=== PATIENT | female | born 1985 | race Caucasian/White ===

== ENCOUNTER → 2016-09-08 | Outpatient (CLI) | payer BC | LOC: MW.CHOBGYN 11:30 | PROVIDERS: ATTEND Nurse Practitioner Women's Health | DX: N92.0 Excessive and frequent menstruation with regular cycle (principal) | CPT/HCPCS: 36415; 81025; 83002; 84439; 84443; 85025; 85610; 87491; 87591; 88305 ==

== ENCOUNTER → 2016-11-14 | Outpatient (CLI) | payer BC ==
--- NOTE | 2016-11-14 14:27 | CR ---
EXAMINATION: Abdomen HISTORY: Pain COMPARISON: CT dated 06/07/2016 TECHNIQUE: AP and upright views FINDINGS: There is no free air under the diaphragm. There is a small amount of stool and gas through out the colon without evidence of a bowel obstruction. Cholecystectomy clips are noted. No organomeg maria r. No abnormal calcifications. Bone mineralization appears normal. IMPRESSION: Unremarkable abdominal films.
== END ==
LOC: MW.CHOBGYN 11:02
PROVIDERS: ATTEND Nurse Practitioner Women's Health
DX: R10.9 Unspecified abdominal pain (principal)
CPT/HCPCS: 36415; 74020; 74020-26; 81001; 85025; 87086

== ENCOUNTER → 2016-11-17 | Outpatient (CLI) | payer BC ==
--- NOTE | 2016-11-17 20:20 | CT ---
EXAM DATE: 11/17/16 PATIENT'S AGE: 31 Patient: TAMRA WILLIS AAGERALDINEND Facility: [place], [place] : 1985 Study: CT Abdomen/Pelvis [id number]/12/2017 9:57:36 AM Ordering Physician[facility] Final Report: HISTORY: Kidney stones. Technique: Noncontrast CT abdomen and pelvis. Comparison: 06/07/2016. Findings: There is a 2.4 cm area of low density within the lateral segment of the left hepatic lobe superiorly as seen on image #17 of series 201. This could be present within a larger mass. Finding is not evaluated by this noncontrast CT. While this could relate to a hemangioma or focal nodular hyperplasia with scar, other hepatic lesion such as adenoma is not excluded and further evaluation with either triphasic liver CT or liver MRI is recommended. In retrospect at the prior CT, there was subtle low density in this region. No other focal pack abnormality. Prior cholecystectomy. Spleen size within normal limits. Adrenal glands normal. There is no focal pancreatic abnormality though pancreas overall is not well-evaluated without contrast. - 1-2 mm punctate nonobstructive calculus is present within the inferior pole collecting system of the left kidney on image #59, unchanged. No other left- sided urinary calculus. No left-sided hydronephrosis or left-sided renal mass. No right-sided hydronephrosis. There is a subtle 1.1 cm low-density renal lesion involving the anterior aspect of the right kidney which could represent a cyst though is incompletely characterized. No right-sided urinary calculus seen. Urinary bladder is decompressed and not well-evaluated by CT. - No small bowel obstruction. No diverticulitis. Trace amount of pelvic free fluid. No localized collection. No free air. Small fat-containing umbilical hernia is unchanged. - Mild scarring at the left lung base as before. Impression: 1. Subtle lesion within the left hepatic lobe which is not characterized by this noncontrast CT. Consider either liver MRI or triphasic liver CT for further evaluation. While this could represent a lesion such as a hemangioma, FNH with central scar, hepatic adenoma or other lesion may be considered. 2. Single nonobstructive intrarenal calculus within the inferior pole collecting system of the left kidney as before. 3. No hydronephrosis or obstructive urinary calculus. 4. Possible 1.1 cm right renal cyst. 5. Prior cholecystectomy. 6. No change in small fat-containing umbilical hernia. Dictated by Julio Le MD @ Nov 17 2016 11:21AM (Electronic Signature) Report Signed by Proxy. ELIZABETH
== END ==
LOC: MW.DI 08:28
PROVIDERS: ATTEND Nurse Practitioner Women's Health
DX: N20.0 Calculus of kidney (principal); Z87.442 Personal history of urinary calculi; K76.9 Liver disease, unspecified; Z90.49 Acquired absence of other specified parts of digestive tract
CPT/HCPCS: 74176; 74176-26

== ENCOUNTER → 2016-11-29 | Outpatient (CLI) | payer BC ==
[~2016-11-29] MED LIST: Gadobenate Dimeglumine 529 MG/ML 20 ML SDV IV ONE
--- NOTE | 2016-11-29 10:56 | MR ---
EXAMINATION: MRI of the abdomen with and without contrast HISTORY: Abnormal CT COMPARISON: 11/17/2016 TECHNIQUE: Multiplanar and multisequence images obtained through the abdomen before and following th e administration of 16 mL of MultiHance. A hepatic protocol was used. FINDINGS: There is a slightly T1 hypointense and T2 isointense mass within the left hepatic lobe casandra suring approximately 5.6 cm. This has a T2 bright central scar which does not enhance on initial pos tcontrast images. The remaining portion of the mass is relatively hyperenhancing on the arterial pha se, then similar and enhancement on the portal venous and delayed phases. The scar demonstrates mild enhancement on the delayed phase. There is no dropout of signal within the liver on the out of phas e images within the normal parenchyma or mass. The adrenal glands, spleen, and pancreas appear tushar l. No bulky retroperitoneal lymphadenopathy or abdominal ascites. Cholecystectomy. The kidneys enhan ce and function symmetrically without evidence of obstructive uropathy. The visualized bone marrow s ignal appears normal. IMPRESSION: 1. 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
== END | disposition home or self-care (01) ==
LOC: MW.MRI 08:44
PROVIDERS: ATTEND Nurse Practitioner Women's Health
DX: K76.89 Other specified diseases of liver (principal); N28.1 Cyst of kidney, acquired; R10.9 Unspecified abdominal pain
CPT/HCPCS: 74183; 81001; A9577